=== PATIENT | female | born 1995 | race Caucasian/White ===

== ENCOUNTER 2017-06-23 12:57 | Day surgery (SDC) | payer OTHER, SELFPAY ==
[2017-06-23 16:44] LABS: Bilirubin Negative (Negative); Blood, Urine Trace (Negative); Glucose, Urine (Dipstick) Negative (Negative); Ketone, Urine 15 mg/dL (Negative); Nitrite Negative (Negative); Protein, Urine (Dipstick) Negative (Neg-Trace); Urobilinogen 0.2 mg/dL (0.2-1.0)
[2017-06-23 16:46] LABS: Bacteria/HPF None Seen HPF (None Seen); Hyaline Casts/LPF 0-3 HYALINE CAST LPF (0-3 Hyaline); RBC/HPF 0-3 HPF (0-3); Squamous Epithelial 0-3 HPF (0-3); WBC/HPF None Seen HPF (0-3)
--- NOTE | 2017-06-23 17:39 | ULT ---
ULTRASOUND PELVIC TRANSVAGINAL: History: Assess cervical length. Contractions. Comparison: 04-01-17 FINDINGS: The cervix measures 4 cm in length. The cervix is closed. IMPRESSION: Cervix measures 4 cm in length and is closed. POS: [facility]
== END 2017-06-23 17:40 | disposition home or self-care (01) ==
LOC: L&D/OP 12:57
PROVIDERS: ATTEND Family Medicine
DX: O99.89 Other specified diseases and conditions complicating pregnancy, childbirth and the puerperium (principal); R10.9 Unspecified abdominal pain; O99.512 Diseases of the respiratory system complicating pregnancy, second trimester; J45.909 Unspecified asthma, uncomplicated; O99.332 Smoking (tobacco) complicating pregnancy, second trimester; F17.210 Nicotine dependence, cigarettes, uncomplicated; Z3A.26 26 weeks gestation of pregnancy; Z79.82 Long term (current) use of aspirin; Z79.899 Other long term (current) drug therapy; Z98.890 Other specified postprocedural states
CPT/HCPCS: 76856; 81003; 81015; 82731; 87480; 87510; 87660; 96360; 96361

== ENCOUNTER 2017-11-14 15:21 | Day surgery (SDC) | payer OTHER ==
[~2017-11-14 15:21] MED LIST: Dexamethasone 20 MG/5 ML VIAL ONE; Glycopyrrolate 0.2 MG/ML 5 ML SYRINGE ONE; Ketorolac Tromethamine 30 MG/ML VIAL ONE; Lidocaine 1% PF 5 ML VIAL ONE; Ondansetron HCl/PF 4 MG/2 ML Vial ONE; PROPOFOL 200 MG/20 ML VIAL ONE
[2017-11-14] MEDS ORDERED: Ketorolac Tromethamine 60 MG/2 ML VIAL ONE (16:27)
[2017-11-14 16:46] LABS: #Eosinphils 0.1 thou/uL (0.0-0.7); #Lymphocytes 3.1 thou/uL (1.20-3.40); #Neutrophils 6.7 thou/uL (1.40-6.50); %Basophils 0.4 % (0.0-1.0); %Eosinophils 1.3 % (0.0-10.0); %Lymphocytes 28.3 % (28.0-48.0); %Monocytes 9.2 % (0.0-4.0); %Neutrophils 60.8 % (31.0-61.0); Mean Corpuscular HGB CONC 33.2 g/dL (32.0-36.0); Mean Corpuscular Hemoglobin 27.4 pg (25.0-35.0); Mean Corpuscular Volume 82.3 fl (77.0-87.0); Mean Platelet Volume 8.4 fL (7.4-10.4); Platelet Count 224 thou/uL (130-400)
[2017-11-14 19:52] LABS: Prothrombin Time 13.7 SEC (12.0-14.7)
[2017-11-14 19:55] LABS: Anion Gap 11 mmol/L (10-20); BUN (Urea Nitrogen) 10 mg/dL (8.4-21.0); Calc. Creatinine Clearance 0 mL/min (70-130); Calcium 9.5 mg/dL (7.8-10.44); Carbon Dioxide 25 mmol/L (22-29); Chloride 106 mmol/L (98-107); Estimated GFR-MDRD Greater than 90; Glucose 72 mg/dL (70-105); Potassium 3.6 mmol/L (3.5-5.1); Sodium 138 mmol/L (136-145)
--- NOTE | 2017-11-14 20:24 | ULT ---
PELVIC ULTRASOUND 11/14/17 COMPARISON: None. HISTORY: Vaginal bleeding and cramping after placement of an IUD on Saturday. Patient initially had small clots and increased to a big clot yesterday. TECHNIQUE: Multiplanar koenig scale and color doppler images were obtained in a transvaginal and transabdominal pe lvic ultrasound. Spectral analysis of the doppler waveforms of the right ovary were performed. FINDINGS: The uterus is normal in size. The endometrial stripe is seen and measured at 7 mm. There is a slightl y more echogenic region within the uterus which does not demonstrate shadowing which could potentiall y represent the patient's IUD but this is not definitely an IUD. No free fluid is seen in the pelvis. The right ovary is normal in size and appearance and demonstrate s normal internal flow. The left ovary was not visualized. IMPRESSION: There is an echogenic region in the uterus which may represent the patient's IUD. However, this does not demonstrate shadowing as most IUDs do and definite IUD placement within the uterus is not confirm ed on this exam. POS: [facility]
[2017-11-14] MEDS ORDERED: Bupivacaine HCl 0.5%/Epinephrine 1:200,000/PF 30 ml Vial ONE (20:41)
[2017-11-14] MEDS ORDERED: CEFAZOLIN 1 GM VIAL ONE (20:41)
--- NOTE | 2017-11-14 21:02 | HP ---
DATE OF ENCOUNTER: 11/14/2017 CHIEF COMPLAINT: Vaginal bleeding and rectal pain. HISTORY OF PRESENT ILLNESS: The patient is a 21-year-old G3, P2 female who presents to [facility] with pelvic and rectal pain and vaginal bleeding that she reports having since placement of a P araGard IUD on Saturday. After evaluation in the emergency room, imaging strongly suggests that this I UD is perforated through the posterior aspect of the uterus into the pouch of Sahil. The patient r eports she has difficulty moving about without pain and is worried about trying to have a bowel movem ent because of the amount of pain that she is in. PAST MEDICAL HISTORY: Gastroesophageal reflux disease, asthma and endometriosis. PAST SURGICAL HISTORY: She had a D and C in 2017. SOCIAL HISTORY: The patient reports half pack per day tobacco use, denies drug or alcohol use. ALLERGIES: No known drug allergies. MEDICATIONS: Amitriptyline, Imitrex and albuterol. REVIEW OF SYSTEMS: The patient denies any fever, illness, headache, chest pain, shortness of breath, nausea, vomiting, diarrhea, constipation. She reports that her bleeding is less than a period. PHYSICAL EXAMINATION: VITAL SIGNS: Blood pressure 105/70, pulse of 92, respiratory rate of 18, temperature 98.4, O2 sats a re 98% on room air. GENERAL: The patient appears to be in minimal distress. She is alert and oriented, cooperative and pleasant to interact with. HEAD: Normocephalic, atraumatic. LUNGS: Clear to auscultation bilaterally. HEART: Regular rate and rhythm. ABDOMEN: She has some tenderness in the lower pelvis and suprapubic region just on palpation. GENITOURINARY: Has been deferred by myself, reported by ER physician that the IUD strings were not v isible at time of speculum exam. IMAGING: CT scan of the abdomen and pelvis reports that the IUD is visible in the pouch of Sahil. LABORATORY DATA: Blood count, white count is 11, hemoglobin is 12.0, hematocrit 36.2, platelets 224, 000. ASSESSMENT AND PLAN: The patient is an otherwise healthy 21-year-old female with an ectopic intraute rine device recently placed and visualized in the pouch of Sahil by CT. The patient has been couns eled to the risks and benefits of removal of this intrauterine device with recommendation of removal by diagnostic laparoscopy with risks including bleeding, infection, damage to bowel or bladder, blood vessels. The patient has expressed understanding. She reports that she has had nothing to eat or d rink since yesterday and desires to proceed. I have notified the operating room and we will be proce rafael for diagnostic laparoscopy once a room is available.
[2017-11-14] MEDS ORDERED: Fentanyl 100 MCG/2 ML VIAL ONE ×2 (21:20→23:18)
--- NOTE | 2017-11-14 21:47 | CT ---
CT ABDOMEN AND PELVIS WITHOUT CONTRAST: 11/14/17 COMPARISON: Pelvic ultrasound 11/14/17. HISTORY: Vaginal bleeding and pain after recent IUD placement. The IUD was placed on Saturday. Patient initially had small clots and passed a big clot yesterday. Evaluation for IUD location. TECHNIQUE: Multiple contiguous axial images were obtained in a CT of the abdomen and pelvis without contrast. Co ronary reformats were performed. FINDINGS: There is air in the vagina. The uterus is normal in size. Between the uterus and the rectum, there is a transverse lying IUD. This is extrauterine in location. No free air is seen in the abdomen. There is a trace amount of free fluid in the pelvis. There is a nonobstructing 4 mm calcification in the right kidney. There is hyperdensity of the renal pyramids which may be secondary to renal medullary calcinosis. The liver, gallbladder, adrenal glands , spleen, and pancreas are unremarkable on this limited noncontrast examination. The large and small bowel are unremarkable. IMPRESSION: 1. There is perforation of the uterus by the IUD and location of the IUD within the pouch of Jewel glas between the lower uterine segment and the colon. 2. Nonobstructing right renal calcification. 3. 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 POS: [facility]ETH
[2017-11-14] MEDS ORDERED: Meperidine HCl/PF 25 MG/ML VIAL ONE (22:27)
--- NOTE | 2017-11-15 08:15 | OP ---
DATE OF OPERATION: 11/14/2017 PREOPERATIVE DIAGNOSES: 1. Pelvic pain. 2. Ectopic intrauterine device. 3. Vaginal bleeding. POSTOPERATIVE DIAGNOSES: 1. Pelvic pain. 2. Ectopic intrauterine device. 3. Vaginal bleeding. PROCEDURE: Diagnostic laparoscopy with removal of foreign body. ANESTHESIA: General. SURGEON: Oliver Mares M.D. ESTIMATED BLOOD LOSS: Less than 10 mL. FINDINGS: Paragard IUD was found lying loose in the pouch of Sahil. There was a lesion at the fun dus of the uterus where it appears the IUD was perforated through at the time of placement a few days prior. Tubes and ovaries appeared normal. There is no adhesive disease present at this time. SPECIMENS: None to pathology. COMPLICATIONS: None. CONDITION: Stable. DISPOSITION: To recovery room. INDICATIONS FOR PROCEDURE: The patient is a 21-year-old G3, P2 female who presented to the ER with v aginal bleeding and pelvic pain after [facility] for her to com e. On evaluation here, patient was noted to have an ectopic IUD found between the pouch of Sahil b etween her uterus and her rectum and I was asked to come and evaluate. Given the patient's pain cond itions, patient desired to have the ParaGard IUD removed at this time. After discussing risks and be nefits of surgery and the recommendation for removal, patient expressed informed consent and we proce eded with the operation. DESCRIPTION OF PROCEDURE: She was placed under anesthesia without difficulty and [facility] She was then prepared and draped in normal sterile fashion. Att ention was placed vaginally where a single tooth tenaculum and a uterine manipulator was then inserte d. There were no visible IUD strings. Attention was then placed abdominally where the abdomen was i nsufflated to 15 mmHg with CO2 gas and a Veress needle. Entry pressure was 2 mmHg. A 5 mm incision was then placed at the base of the umbilicus. Another 5 mm incision was made suprapubically at the m idline. A 5 mm port with trocar was inserted at the umbilicus and proper placement was confirmed by laparoscope. A second trocar port with trocar was then introduced at suprapubic incision site under direct visualization with the aid of a blunt grasper and then elevating the uterus, a ParaGard IUD wa s noted to be free floating in the pouch of Sahil. With blunt grasper, the IUD was grasped and the n pulled through the 5 mm port suprapubically. There appears to be a lesion at the fundus of the wilder jennifer where this IUD likely was perforated through at time of placement a few days prior. Everything i s hemostatic. There does not appear any sign of infection. At this time, the procedure was complete d. The ports were removed after the abdomen was deflated and the two 5 mm incisions were closed with 4-0 Monocryl. The uterine manipulator and single tooth tenaculum were then removed and the tenaculu m site was made hemostatic with pressure. The patient was then taken out of lithotomy position and a woken from anesthesia and taken to recovery room in stable condition.
[2017-11-17 18:22] LABS: Chlamydia by PCR Not Detected (NotDetected); GC by PCR Not Detected (NotDetected)
== END 2017-11-14 23:30 | disposition home or self-care (01) ==
LOC: ERS 15:21 → SDC/OP 21:15
PROVIDERS: ATTEND Obstetrics & Gynecology
PROC: 0WPJ4YZ Removal of Other Device from Pelvic Cavity, Percutaneous Endoscopic Approach (ICD-10-PCS; principal; 2017-11-14)
DX: T83.32XA Displacement of intrauterine contraceptive device, initial encounter (principal); N93.9 Abnormal uterine and vaginal bleeding, unspecified; K21.9 Gastro-esophageal reflux disease without esophagitis; J45.909 Unspecified asthma, uncomplicated; N80.9 Endometriosis, unspecified; F17.210 Nicotine dependence, cigarettes, uncomplicated; Z79.82 Long term (current) use of aspirin; Z79.899 Other long term (current) drug therapy
CPT/HCPCS: 36415; 74176; 76856; 80048; 85025; 85610; 85730; 86850; 86900; 86901; 87480; 87491; 87510; 87591; 87660; 96372; 96374; 99406; J0131; J0670; J0690; J1100; J1885; J2001; J2175; J2405; J2704; J3010

== ENCOUNTER 2018-10-28 08:02 | Outpatient (CLI) | payer OTHER ==
[2018-10-28] MEDS ORDERED: Iopamidol 300 61% 50 ML VIAL FS ONE (09:04)
[2018-10-28] MEDS ORDERED: Gadobenate Dimeglumine 529 MG/1 ML (20ML VIAL) ONE ×3 (09:04→11:43)
[2018-10-28] MEDS ORDERED: EPINEPHrine 1 MG/ML AMP ONE ×2 (09:04→09:12)
[2018-10-28] MEDS ORDERED: Lidocaine 1% PF 5 ML VIAL ONE ×2 (09:04→09:12)
[2018-10-28] MEDS ORDERED: Iopamidol 300 61% 30 ML VIAL ONE (09:12)
--- NOTE | 2018-10-28 11:57 | RAD ---
LEFT HIP ARTHROGRAM: Date: 10/28/18 HISTORY: Pain. COMPARISON: None. FINDINGS: The exchange engineer radiograph demonstrated normal appearance of both hip joints. No fracture. No malalignment. The patient was brought to the fluoroscopy suite, All questions answered. Informed consent obtained. Timeout performed. The patient's left hip was prepped and draped in the normal sterile fashion. 3 mL of buffered lidocaine was instilled into the superficial and deep soft tissues. Using a 22 gauge spin al needle, the left hip was accessed. 8 mL of contrast solution was instilled into the hip. Intraarti cular location was confirmed using fluoroscopy. IMPRESSION: Technically successful fluoroscopic guided left hip arthrogram for MRI. POS: EL[facility]ABETH
--- NOTE | 2018-10-28 13:05 | MRI ---
MRI LEFT HIP WITH INTRAARTICULAR CONTRAST: HISTORY: M25.552, labral tear. Occult fracture. COMPARISON: None. FINDINGS: INTRAPELVIC SOFT TISSUES: The ovaries are normal. The uterus is normal. Trace free fluid in the pe lvis, likely physiologic. MUSCLES: The muscle signal and bulk is normal. BONES: No fracture. No malalignment. No stress edema. Normal acetabular version. LABRUM: There is a tear of the anterior and superior labrum, which is a cleavage-type tear, extendin g from the free edge to the body. No displaced tissue. TENDONS: The iliopsoas tendon is intact. The gluteus medius and minimus tendons are intact. The jensen mstring tendons are intact. IMPRESSION: 1. Anterior-superior cleavage-type labral tear extending from the free edge to the mid substance. N o displaced tissue. 2. No stress edema or fracture of the femur. POS: [facility]
--- NOTE | 2018-10-28 13:27 | MRI ---
MRI LEFT FEMUR WITHOUT CONTRAST: HISTORY: Pain. COMPARISON: None. FINDINGS: The cortex is intact. The medullary cavity is intact. No fracture. No malalignment. MUSCLES: Muscle signal and bulk are normal. NEUROVASCULAR BUNDLES: Intact. SOFT TISSUES: Intact. Normal. IMPRESSION: Normal femur MRI. POS: [facility]
== END 2018-10-28 08:03 | disposition home or self-care (01) ==
LOC: RAD 08:02
PROVIDERS: ATTEND Pediatrics Sports Medicine
DX: S72.92XA Unspecified fracture of left femur, initial encounter for closed fracture (principal); S73.102A Unspecified sprain of left hip, initial encounter; M25.552 Pain in left hip
CPT/HCPCS: 27093; A9577

== ENCOUNTER 2019-06-11 07:45 | Outpatient (CLI) | payer OTHER ==
--- NOTE | 2019-06-11 08:53 | MRI ---
MRI BRAIN WITH AND WITHOUT CONTRAST: HISTORY: Migraine headache without aura. Headaches that have worsened over the last two to three months, incre ased intensity and frequency. COMPARISON: None. FINDINGS: Gradient echo sequence: No hemorrhage. Calvarium: Appropriate T1 marrow signal intensity. Midline brain parenchyma: Unremarkable. Cerebrum: No parenchymal mass, mass effect or midline shift. Brain volume is age-appropriate. Cortica l koenig-white matter differentiation is preserved. No significant T2 or FLAIR white matter hyperintensities. Ventricles: No evidence of hydrocephalus. Sinuses and mastoid air cells: Mucosal thickening involving the right maxillary sinus. Mucosal retent ion cyst in the left maxillary sinus. Partial opacification of bilateral mastoid air cells, right greater than left. Diffusion: Central arterial flow is maintained. Absent restricted diffusion. Postcontrast images: No pathologic enhancement of the brain parenchyma. Hypopharynx: Mild hyperplasia of the adenoid tonsils. Correlate clinically. Direct visualization is r ecommended to exclude other etiologies. IMPRESSION: 1. Absent restricted diffusion. No acute infarct. 2. No pathologically enhancement of the brain parenchyma. 3. Partial opacification of the paranasal sinuses and mastoid air cells. Correlate for an infectious process. 4. Mild hyperplasia of the adenoid tonsils. Correlate clinically. Direct visualization is recommended to exclude other etiologies. Transcribed Date/Time: 06/11/2019 9:27 AM
[2019-06-11] MEDS ORDERED: Gadobenate Dimeglumine 529 MG/1 ML (20ML VIAL) ONE (09:00)
== END 2019-06-11 07:46 | disposition home or self-care (01) ==
LOC: SCSMRI 07:45
PROVIDERS: ATTEND Nurse Practitioner Acute Care
DX: G43.019 Migraine without aura, intractable, without status migrainosus (principal); J34.89 Other specified disorders of nose and nasal sinuses; J35.1 Hypertrophy of tonsils
CPT/HCPCS: 70553; A9577

== ENCOUNTER 2019-06-26 10:29 | Outpatient (CLI) | payer OTHER | END 2019-06-26 10:30 | disposition home or self-care (01) | LOC: CTENTCT 10:29 | PROVIDERS: ATTEND Student in an Organized Health Care Education/Training Program | DX: J32.9 Chronic sinusitis, unspecified (principal) | CPT/HCPCS: 70486 ==

== ENCOUNTER 2020-06-24 09:52 | Emergency (ER) | payer OTHER ==
[2020-06-24] MEDS ORDERED: Metoclopramide HCl 10 MG/2 ML VIAL ONE (10:28)
[2020-06-24] MEDS ORDERED: Metoclopramide 10 MG/10 ML UDCUP ONE (10:28)
[2020-06-24] MEDS ORDERED: Ketorolac Tromethamine 30 MG/ML VIAL ONE (10:28)
[2020-06-24] MEDS ORDERED: diphenhydrAMINE 50 MG/ML VIAL ONE (10:28)
== END 2020-06-24 12:35 | disposition home or self-care (01) ==
LOC: ERS 09:52
DX: G43.909 Migraine, unspecified, not intractable, without status migrainosus (principal); K21.9 Gastro-esophageal reflux disease without esophagitis; J45.909 Unspecified asthma, uncomplicated; F41.9 Anxiety disorder, unspecified; F32.9 Major depressive disorder, single episode, unspecified; F17.210 Nicotine dependence, cigarettes, uncomplicated
CPT/HCPCS: 96374; 96375; J1200; J1885; J2765

== ENCOUNTER 2020-09-21 13:36 | Outpatient (CLI) | payer OTHER, MEDICAID ==
--- NOTE | 2020-09-21 14:04 | ULT ---
EXAM: US Breast Limited Lt PROVIDED CLINICAL HISTORY: Left breast swelling COMPARISON: None FINDINGS: Limited sonographic interrogation was performed of the left breast in the region of clinical concern at 1-3:00 positions. The sonographic appearance of the breast tissue in this region is normal. IMPRESSION: No sonographic abnormality is evident in the region of clinical concern. Negative imaging findings sh ould not preclude further evaluation of a clinically suspicious finding. Patient is referred back to her clinician.
== END 2020-09-21 13:37 | disposition home or self-care (01) ==
LOC: BICULT 13:36
PROVIDERS: ATTEND Internal Medicine Hospice and Palliative Medicine
DX: N64.4 Mastodynia (principal)

== ENCOUNTER 2020-10-01 21:43 | Emergency (ER) | payer MEDICAID, OTHER ==
[2020-10-01] MEDS ORDERED: HYDROcodone/Acetaminophen 10/325 mg Tablet ONE (21:54)
== END 2020-10-01 22:00 | disposition home or self-care (01) ==
LOC: ERS 21:43
DX: H66.91 Otitis media, unspecified, right ear (principal); K21.9 Gastro-esophageal reflux disease without esophagitis; J45.909 Unspecified asthma, uncomplicated; F17.210 Nicotine dependence, cigarettes, uncomplicated
CPT/HCPCS: 99282

== ENCOUNTER 2021-04-29 20:52 | Emergency (ER) | payer OTHER ==
[2021-04-29] MEDS ORDERED: HYDROcodone/Acetaminophen 10/325 mg Tablet ONE (22:39)
== END 2021-04-29 22:42 | disposition home or self-care (01) ==
LOC: ERS 20:52
DX: H60.91 Unspecified otitis externa, right ear (principal); G43.909 Migraine, unspecified, not intractable, without status migrainosus; K21.9 Gastro-esophageal reflux disease without esophagitis; J44.9 Chronic obstructive pulmonary disease, unspecified; F17.210 Nicotine dependence, cigarettes, uncomplicated
CPT/HCPCS: 99282

== ENCOUNTER 2021-07-03 14:36 | Outpatient (CLI) | payer OTHER | END 2021-07-03 14:37 | disposition home or self-care (01) | LOC: BICRAD 14:36 | PROVIDERS: ATTEND Thoracic Surgery (Cardiothoracic Vascular Surgery) | DX: J93.9 Pneumothorax, unspecified (principal) | CPT/HCPCS: 71046 ==

== ENCOUNTER 2023-03-26 14:47 | Emergency (ER) | payer OTHER ==
[2023-03-26] MEDS ORDERED: Ketorolac Tromethamine 30 MG/ML VIAL ONE (15:35)
[2023-03-26 15:44] LABS: #Eosinphils 0.2 thou/uL (0.0-0.7); #Monocytes 0.9 thou/uL (0.11-0.59); #Neutrophils 4.4 thou/uL (1.40-6.50); %Basophils 0.1 % (0.0-1.0); %Eosinophils 2.1 % (0.0-10.0); %Lymphocytes 33.1 % (21.0-51.0); %Monocytes 10.8 % (0.0-10.0); %Neutrophils 53.7 % (42.0-75.0); Hematocrit 37.8 % (36.0-47.0); Hemoglobin 12.8 g/dL (12.0-16.0); Mean Corpuscular HGB CONC 33.9 g/dL (32.0-36.0); Mean Corpuscular Hemoglobin 31.8 pg (27.0-31.0); Mean Platelet Volume 9.8 fL (7.4-10.4); Platelet Count 217 10x3/uL (130-400); RBC Distribution Width 13.4 % (11.5-14.5); Red Blood Cell (RBC) Count 4.02 mill/uL (4.20-5.40); White Blood Cell (WBC) Count 8.2 10x3/uL (4.8-10.8)
[2023-03-26 15:55] LABS: BHCG - Serum Negative (NEGATIVE); Pregs Control Background? CLEAR/WHITE (CLR/WHITE); Pregs Control Bar Appear? YES (CONTROL BAR)
[2023-03-26 16:06] LABS: ALT (SGPT) 7 U/L (8-55); AST (SGOT) 10 U/L (5-34); Albumin 4.1 g/dL (3.5-5.0); Alkaline Phosphatase 49 U/L (40-110); Anion Gap 10 mmol/L (10-20); BUN (Urea Nitrogen) 14 mg/dL (7.0-18.7); Bilirubin, Total 0.3 mg/dL (0.2-1.2); Calc. Creatinine Clearance 0 mL/min (70-130); Calcium 9.3 mg/dL (7.8-10.44); Carbon Dioxide 27 mmol/L (22-29); Chloride 106 mmol/L (98-107); Estimated GFR 102; Globulin 2.6 g/dL (2.4-3.5); Glucose 61 mg/dL (70-105); Potassium 4.2 mmol/L (3.5-5.1); Protein, Total 6.7 g/dL (6.0-8.3); Sodium 139 mmol/L (136-145)
[2023-03-26 16:24] LABS: Bilirubin Negative (Negative); Blood, Urine 1+ (Negative); CAUTI Indications for Culture Pelvic or flank pain; Clarity Extra Turbid (Clear); Glucose, Urine (Dipstick) Normal (Negative); Ketone, Urine Negative (Negative); Leukocyte Negative Leu/uL (Negative); Nitrite Negative (Negative); Protein, Urine (Dipstick) 20 mg/dL (Neg-Trace); Specific Gravity, Urine 1.025 (1.002-1.036); WBC/HPF None Seen HPF (0-3)
[2023-03-26 16:29] LABS: Bacteria/HPF 2+ HPF (None Seen)
[2023-03-26 16:31] LABS: Urine Culture Reflex No No
== END 2023-03-26 17:45 | disposition home or self-care (01) ==
LOC: ERS 14:47
DX: N10 Acute pyelonephritis (principal); K21.9 Gastro-esophageal reflux disease without esophagitis; F17.210 Nicotine dependence, cigarettes, uncomplicated
CPT/HCPCS: 36415; 71046; 74176; 80053; 81001; 84703; 85025; 96372; J1885

== ENCOUNTER 2023-04-02 08:37 | Day surgery (SDC) | payer OTHER ==
[2023-03-29 16:28] VITALS: BMI 20.2
[2023-04-02] MEDS ORDERED: Bacitracin Zinc Ointment 30 gm TUBE ONE (11:21)
[2023-04-02] MEDS ORDERED: Bupivacaine PF 0.5% 30 ML VIAL ONE (11:21)
[2023-04-02] MEDS ORDERED: CEFAZOLIN 2 GM VIAL ONE (11:24)
[2023-04-02] MEDS ORDERED: Lidocaine 1% MPF 2 ML VIAL ONE (11:24)
[2023-04-02] MEDS ORDERED: Sodium Chloride 0.9% 100 ML ONE (11:24)
[2023-04-02] MEDS ORDERED: fentaNYL 50 mcg/mL 1 mL Vial ONE (11:57)
[2023-04-02] MEDS ORDERED: Lidocaine 1% PF 5 ML VIAL ONE (12:24)
[2023-04-02] MEDS ORDERED: Dexamethasone 20 MG/5 ML VIAL ONE (12:24)
[2023-04-02] MEDS ORDERED: PROPOFOL 200 MG/20 ML VIAL ONE (12:24)
[2023-04-02] MEDS ORDERED: Ondansetron PF 4 MG/2 ML Vial ONE (12:24)
[2023-04-02] MEDS ORDERED: Ketorolac Tromethamine 30 MG/ML VIAL ONE (14:59)
== END 2023-04-02 15:30 | disposition home or self-care (01) ==
LOC: SDC 08:37
PROVIDERS: ATTEND Orthopaedic Surgery Hand Surgery
PROC: 0LN60ZZ Release Left Lower Arm and Wrist Tendon, Open Approach (ICD-10-PCS; principal; 2023-04-02)
PROC: 0LN50ZZ Release Right Lower Arm and Wrist Tendon, Open Approach (ICD-10-PCS; principal; 2023-04-02)
DX: M65.4 Radial styloid tenosynovitis [de Quervain] (principal); J45.909 Unspecified asthma, uncomplicated; F17.210 Nicotine dependence, cigarettes, uncomplicated
CPT/HCPCS: J1100; J1885; J2405; J2704; J3010; J3490; S0020

== ENCOUNTER 2023-09-24 10:09 | Emergency (ER) | payer OTHER ==
[2023-09-24] MEDS ORDERED: Dexamethasone 4 MG TAB ONE (11:08)
[2023-09-24] MEDS ORDERED: Ipratropium/Albuterol 3 ML NEB ONE (11:13)
[2023-09-24 12:31] LABS: SARS-CoV-2 NAA Rapid Test Not Detected (NotDetected)
== END 2023-09-24 13:00 | disposition home or self-care (01) ==
LOC: ERS 10:09
DX: J45.901 Unspecified asthma with (acute) exacerbation (principal); B34.9 Viral infection, unspecified; F17.210 Nicotine dependence, cigarettes, uncomplicated; Z79.899 Other long term (current) drug therapy
CPT/HCPCS: 71045; 94640; J7620; J8540

== ENCOUNTER 2024-07-09 23:22 | Emergency (ER) | payer OTHER ==
[2024-07-09] MEDS ORDERED: Morphine 4 MG/ML VIAL ONE (23:45)
[2024-07-09] MEDS ORDERED: Ketorolac Tromethamine 30 MG (1 mL) VIAL ONE (23:45)
[2024-07-10 00:06] LABS: #Basophils Less than 0.03 10x3/uL (0.0-0.2); %Basophils 0.2 % (0.0-1.0); %Eosinophils 4.1 % (0.0-10.0); %Lymphocytes 36.2 % (21.0-51.0); %Monocytes 10.8 % (0.0-10.0); %Neutrophils 48.5 % (42.0-75.0); Hematocrit 44.6 % (36.0-47.0); Hemoglobin 15.3 g/dL (12.0-16.0); Mean Corpuscular HGB CONC 34.3 g/dL (32.0-36.0); Mean Corpuscular Hemoglobin 31.4 pg (27.0-31.0); Mean Corpuscular Volume 91.4 fL (78.0-98.0); Mean Platelet Volume 10.1 fL (7.4-10.4); Platelet Count 263 10x3/uL (130-400); RBC Distribution Width 13.3 % (11.5-14.5); Red Blood Cell (RBC) Count 4.88 mill/uL (4.20-5.40)
[2024-07-10 00:21] LABS: BHCG - Serum Negative (NEGATIVE); Pregs Control Background? CLEAR/WHITE (CLR/WHITE); Pregs Control Bar Appear? YES (CONTROL BAR)
[2024-07-10 00:28] LABS: ALT (SGPT) 8 U/L (8-55); AST (SGOT) 15 U/L (5-34); Albumin 4.6 g/dL (3.5-5.0); Alkaline Phosphatase 59 U/L (40-110); Anion Gap 14 mmol/L (10-20); BUN (Urea Nitrogen) 13 mg/dL (7.0-18.7); Bilirubin, Total 0.4 mg/dL (0.2-1.2); Calc. Creatinine Clearance 0 mL/min (70-130); Calcium 9.8 mg/dL (7.8-10.44); Carbon Dioxide 24 mmol/L (22-29); Chloride 105 mmol/L (98-107); Estimated GFR 93; Globulin 3.4 g/dL (2.4-3.5); Glucose 89 mg/dL (70-105); Potassium 4.2 mmol/L (3.5-5.1); Sodium 139 mmol/L (136-145)
== END 2024-07-10 07:10 | disposition home or self-care (01) ==
LOC: ERS 23:22
DX: J93.83 Other pneumothorax (principal); F17.210 Nicotine dependence, cigarettes, uncomplicated
CPT/HCPCS: 71045; 71250; 80053; 84703; 85025; 93005; 96374; 96375; J1885; J2272

== ENCOUNTER 2024-07-11 21:49 | Observation (INO) | payer OTHER ==
[2024-07-11 22:36] LABS: #Basophils Less than 0.03 10x3/uL (0.0-0.2); %Basophils 0.2 % (0.0-1.0); %Eosinophils 3.3 % (0.0-10.0); %Lymphocytes 33.7 % (21.0-51.0); %Monocytes 11.4 % (0.0-10.0); %Neutrophils 51.1 % (42.0-75.0); Hematocrit 37.8 % (36.0-47.0); Hemoglobin 12.9 g/dL (12.0-16.0); Mean Corpuscular HGB CONC 34.1 g/dL (32.0-36.0); Mean Corpuscular Hemoglobin 31.6 pg (27.0-31.0); Mean Corpuscular Volume 92.6 fL (78.0-98.0); Mean Platelet Volume 9.9 fL (7.4-10.4); Platelet Count 241 10x3/uL (130-400); RBC Distribution Width 13.2 % (11.5-14.5); Red Blood Cell (RBC) Count 4.08 mill/uL (4.20-5.40)
[2024-07-11 22:56] LABS: Troponin I Less than 0.010 ng/mL (< 0.028)
[2024-07-11 23:02] LABS: ALT (SGPT) 7 U/L (8-55); AST (SGOT) 12 U/L (5-34); Albumin 3.9 g/dL (3.5-5.0); Alkaline Phosphatase 54 U/L (40-110); Anion Gap 11 mmol/L (10-20); BUN (Urea Nitrogen) 13 mg/dL (7.0-18.7); Bilirubin, Total 0.2 mg/dL (0.2-1.2); Calc. Creatinine Clearance 0 mL/min (70-130); Calcium 9.2 mg/dL (7.8-10.44); Carbon Dioxide 26 mmol/L (22-29); Chloride 107 mmol/L (98-107); Estimated GFR 98; Globulin 2.7 g/dL (2.4-3.5); Glucose 97 mg/dL (70-105); Potassium 3.7 mmol/L (3.5-5.1); Protein, Total 6.6 g/dL (6.0-8.3); Sodium 140 mmol/L (136-145)
[2024-07-11] MEDS ORDERED: Ondansetron PF 4 MG/2 ML Vial ONE (23:25)
[2024-07-11] MEDS ORDERED: Ketorolac Tromethamine 30 MG (1 mL) VIAL ONE (23:25)
[2024-07-11] MEDS ORDERED: Morphine 4 MG/ML VIAL ONE (23:25)
[2024-07-11 23:49] LABS: BHCG - Serum Negative (NEGATIVE); Pregs Control Background? CLEAR/WHITE (CLR/WHITE); Pregs Control Bar Appear? YES (CONTROL BAR)
[2024-07-12 01:43] VITALS: BMI 21.2
[2024-07-12] MEDS ORDERED: Ketorolac Tromethamine 30 MG (1 mL) VIAL IVP PRN (02:07)
[2024-07-12] MEDS ORDERED: Ondansetron PF 4 MG/2 ML Vial IVP PRN (02:15)
[2024-07-12] MEDS ORDERED: Ondansetron ODT 4 MG TAB SL PRN (02:15)
[2024-07-12] MEDS: Sodium Chloride 0.9% 1,000 ML IV SCH (02:26)
[2024-07-12] MEDS: Morphine 4 MG/ML VIAL SLOW IVP PRN (07:24)
[2024-07-12 12:15] VITALS: TEMP 97.9
[2024-07-12 15:41] VITALS: BP 115/74
[2024-07-12] MEDS ORDERED: HYDROcodone/Acetaminophen 5/325 mg Tablet PO PRN (15:52)
[2024-07-12] MEDS: Acetaminophen 325 MG TAB PO SCH (16:15)
[2024-07-12] MEDS: Ketorolac Tromethamine 30 MG (1 mL) VIAL IVP SCH (16:16)
== END 2024-07-12 18:22 | disposition home or self-care (01) ==
LOC: ERS 21:49 → PCU 07-12 00:39
PROVIDERS: ADMIT Student in an Organized Health Care Education/Training Program; ATTEND Student in an Organized Health Care Education/Training Program
DX: J93.83 Other pneumothorax (principal); R23.8 Other skin changes; J45.909 Unspecified asthma, uncomplicated; K21.9 Gastro-esophageal reflux disease without esophagitis; Z98.890 Other specified postprocedural states
CPT/HCPCS: 36415; 71045; 80053; 84484; 84703; 85025; 93005; 96374; 96375; 96376; G0378; J1885; J2272; J2405

== ENCOUNTER 2024-07-28 11:20 | Outpatient (CLI) | payer OTHER ==
[2024-07-28 12:37] LABS: #Basophils Less than 0.03 10x3/uL (0.0-0.2); %Basophils 0.2 % (0.0-1.0); %Eosinophils 1.5 % (0.0-10.0); %Lymphocytes 29.6 % (21.0-51.0); %Neutrophils 58.5 % (42.0-75.0); Hematocrit 39.7 % (36.0-47.0); Hemoglobin 13.4 g/dL (12.0-16.0); Mean Corpuscular HGB CONC 33.8 g/dL (32.0-36.0); Mean Corpuscular Hemoglobin 31.4 pg (27.0-31.0); Mean Platelet Volume 10.8 fL (7.4-10.4); Platelet Count 219 10x3/uL (130-400); RBC Distribution Width 13.3 % (11.5-14.5); Red Blood Cell (RBC) Count 4.27 mill/uL (4.20-5.40)
== END 2024-07-28 11:21 | disposition home or self-care (01) ==
LOC: LABBT 11:20
PROVIDERS: ATTEND Student in an Organized Health Care Education/Training Program
DX: Z01.812 Encounter for preprocedural laboratory examination (principal); J93.83 Other pneumothorax
CPT/HCPCS: 85025

== ENCOUNTER 2024-07-28 12:30 | Inpatient (IN) | payer OTHER ==
[2024-07-29] MEDS ORDERED: Bupivacaine PF 0.5% 30 ML VIAL ONE (06:47)
[2024-07-29] MEDS ORDERED: EPINEPHrine 1 MG/ML VIAL ONE (06:47)
[2024-07-29] MEDS ORDERED: Bupivacaine 0.25% HCL 30 ML VIAL ONE (06:47)
[2024-07-29] MEDS ORDERED: PROPOFOL 40 ML ONE (06:51)
[2024-07-29] MEDS ORDERED: Rocuronium Bromide 10 MG/ML (10ML VIAL) ONE (06:51)
[2024-07-29] MEDS ORDERED: fentaNYL PF 100 MCG/2 ML SYRINGE ONE (06:51)
[2024-07-29] MEDS ORDERED: Lidocaine 1% PF 5 ML VIAL ONE (06:51)
[2024-07-29] MEDS ORDERED: Sodium Chloride 0.9% 100 ML ONE ×2 (06:53→15:36)
[2024-07-29] MEDS ORDERED: Dexmedetomidine 200 MCG/2 ML VIAL ONE (06:53)
[2024-07-29] MEDS ORDERED: Magnesium 5 GM/10 ML VIAL ONE (06:59)
[2024-07-29] MEDS ORDERED: Lidocaine 1% MPF 2 ML VIAL ONE (07:09)
[2024-07-29] MEDS ORDERED: CEFAZOLIN 2 GM VIAL ONE ×2 (07:09→15:36)
[2024-07-29] MEDS ORDERED: Midazolam HCl 2 mg/2 ml Vial ONE (07:15)
[2024-07-29] MEDS ORDERED: Ondansetron PF 4 MG/2 ML Vial ONE (08:10)
[2024-07-29] MEDS ORDERED: Dexamethasone 4 mg/ml Vial ONE (08:10)
[2024-07-29] MEDS ORDERED: Thrombin 5000 UNITS/5 ML VIAL ONE (08:28)
[2024-07-29] MEDS ORDERED: Calcium Chloride 1 GM/10 ML Abboject SYRINGE ONE (08:28)
[2024-07-29] MEDS ORDERED: PHENYLEPHRINE-NS 100 MCG/ML 10 ML SYRINGE ONE (08:33)
[2024-07-29] MEDS ORDERED: SUGAMMADEX SODIUM 200 MG/2 ML VIAL ONE ×2 (09:03→09:09)
[2024-07-29] MEDS ORDERED: fentaNYL 50 mcg/mL 1 mL Vial ONE ×4 (09:12→09:43)
[2024-07-29] MEDS ORDERED: Ipratropium/Albuterol 3 ML NEB NEB PRN (09:13)
[2024-07-29] MEDS ORDERED: Acetaminophen 325 MG TAB PO PRN (09:13)
[2024-07-29] MEDS ORDERED: Ondansetron PF 4 MG/2 ML Vial IVP PRN (09:13)
[2024-07-29] MEDS ORDERED: Promethazine HCl 25 MG/ML VIAL IM PRN (09:13)
[2024-07-29] MEDS ORDERED: HYDROmorphone 0.5 MG/0.5 ML SYRINGE ONE ×2 (10:24→11:07)
[2024-07-29] MEDS ORDERED: Meperidine HCl/PF 25 MG (1 mL) VIAL ONE (10:47)
[2024-07-29] MEDS ORDERED: Promethazine HCl 25 MG/ML VIAL ONE (10:56)
[2024-07-29 16:51] VITALS: BMI 22.4
[2024-07-29] MEDS: CEFAZOLIN 2 GM in Sodium Chloride 0.9% 100 ML IVPB SCH (16:51)
[2024-07-29] MEDS: traMADol HCl 50 MG TAB PO PRN (17:13)
[2024-07-29] MEDS: Morphine 4 MG/ML VIAL SLOW IVP PRN (20:06)
[2024-07-29] MEDS: fentaNYL 50 mcg/mL 1 mL Vial SLOW IVP PRN (23:27)
[2024-07-30 06:16] LABS: #Basophils Less than 0.03 10x3/uL (0.0-0.2); %Basophils 0.1 % (0.0-1.0); %Eosinophils 0.5 % (0.0-10.0); %Lymphocytes 16.8 % (21.0-51.0); %Neutrophils 71.3 % (42.0-75.0); Hemoglobin 11.9 g/dL (12.0-16.0); Mean Corpuscular Hemoglobin 31.6 pg (27.0-31.0); Mean Corpuscular Volume 92.8 fL (78.0-98.0); Mean Platelet Volume 10.9 fL (7.4-10.4); Platelet Count 209 10x3/uL (130-400); RBC Distribution Width 13.4 % (11.5-14.5); Red Blood Cell (RBC) Count 3.77 mill/uL (4.20-5.40)
[2024-07-30 06:38] LABS: Anion Gap 12 mmol/L (10-20); BUN (Urea Nitrogen) 7 mg/dL (7.0-18.7); Calc. Creatinine Clearance 106 mL/min (70-130); Calcium 8.4 mg/dL (7.8-10.44); Carbon Dioxide 21 mmol/L (22-29); Chloride 109 mmol/L (98-107); Estimated GFR 126; Glucose 96 mg/dL (70-105); Potassium 4.2 mmol/L (3.5-5.1); Sodium 138 mmol/L (136-145)
[2024-07-30] MEDS ORDERED: Bisacodyl 10 MG SUPP PR PRN (07:23)
[2024-07-30] MEDS: Senokot S 8.6-50 MG TAB PO SCH (08:10)
[2024-07-30] MEDS: Lidocaine 4% Patch TD SCH (08:11)
[2024-07-30] MEDS: HYDROcodone/Acetaminophen 5/325 mg Tablet PO PRN (12:04)
[2024-07-30 15:48] VITALS: BMI 22.4
[2024-07-30] MEDS: LIDOCAINE Patch Removal TOP SCH (20:27)
[2024-07-31] MEDS: Bisacodyl 5 MG TAB PO PRN (17:51)
[2024-08-01] MEDS: FLU (Fluarix Triv) TS24-25(6MOS UP)/PF 45 MCG/0.5 ML Syringe IM ONE (11:03)
[2024-08-01] MEDS: Ketorolac Tromethamine 30 MG (1 mL) VIAL IVP SCH ×2 (13:02→17:18)
[2024-08-01] MEDS: Cyclobenzaprine 10 MG TAB PO PRN (20:43)
[2024-08-02 12:39] VITALS: BP 121/90; TEMP 98.3
== END 2024-08-02 12:34 | disposition home or self-care (01) | DRG 165 ==
LOC: SURG A 07-29 06:43 → T4-A 07-29 16:33
PROVIDERS: ADMIT Student in an Organized Health Care Education/Training Program; ATTEND Student in an Organized Health Care Education/Training Program
PROC: 0BBC4ZZ Excision of Right Upper Lung Lobe, Percutaneous Endoscopic Approach (ICD-10-PCS; principal; 2024-07-29)
PROC: 0B5N4ZZ Destruction of Right Pleura, Percutaneous Endoscopic Approach (ICD-10-PCS; 2024-07-29)
PROC: 3E0L4GC Introduction of Other Therapeutic Substance into Pleural Cavity, Percutaneous Endoscopic Approach (ICD-10-PCS; 2024-07-29)
PROC: 3E0T3BZ Introduction of Anesthetic Agent into Peripheral Nerves and Plexi, Percutaneous Approach (ICD-10-PCS; 2024-07-29)
PROC: 0BJ08ZZ Inspection of Tracheobronchial Tree, Via Natural or Artificial Opening Endoscopic (ICD-10-PCS; 2024-07-29)
DX: J93.9 Pneumothorax, unspecified (principal); G43.909 Migraine, unspecified, not intractable, without status migrainosus; F41.9 Anxiety disorder, unspecified; F32.A Depression, unspecified; Z98.51 Tubal ligation status; Z98.890 Other specified postprocedural states; Z79.899 Other long term (current) drug therapy
CPT/HCPCS: 36415; 71045; 80048; 85025; 88305; 88312; 88313; A4649; C1776; J0171; J0665; J1100; J1171; J1642; J1885; J2175; J2250; J2272; J2405; J2550; J2704; J3010; J3475

== ENCOUNTER 2024-08-20 13:08 | Outpatient (CLI) | payer OTHER | END 2024-08-20 13:09 | disposition home or self-care (01) | LOC: RAD 13:08 | PROVIDERS: ATTEND Student in an Organized Health Care Education/Training Program | DX: J93.83 Other pneumothorax (principal) | CPT/HCPCS: 71046 ==